=== PATIENT | female | born 1940 | race Caucasian/White ===

== ENCOUNTER 2024-06-13 09:31 | Outpatient (AMB) | payer MEDICARE, BC, MEDICAID, SELFPAY ==
[2024-06-13 09:51] VITALS: BP 125/84; PULSE 69; RESP 19; TEMP 36.4; O2SAT 97; BMI 20.3
--- NOTE | 2024-06-13 09:51 | PD.ORTHCLVIS ---
Vital signs 06/13/24 09:51 Height 1.65 m Height Method Stated Weight 55.395 kg Weight Measurement Method Standing Scale BMI 20.3 BP 125/84 Blood Pressure Source Automatic Cuff Blood Pressure Location Right Upper Arm Position Sitting Respiration 19 Pulse 69 Pulse Source Monitor Temp 97.5 F Temp Source Temporal Artery Scan Pulse Oximetry (%) 97 Oxygen Delivery Method Room Air Med/Allergies Allergies & Medications Allergies No Known Allergies Allergy (Verified 06/13/24 10:00) Medication Reconciliation atorvastatin 10 mg tablet (Lipitor) 10 mg PO HS #0 tabs 12/19/14 [History Confirmed 06/13/24] naproxen 375 mg tablet (Naprosyn) 375 mg PO BID PRN PAIN #0 tabs 12/19/14 [History Confirmed 06/13/24] duloxetine 60 mg capsule,delayed release (Cymbalta) 60 mg PO QDAY #30 caps 12/24/14 [History Confirmed 06/13/24] amlodipine 10 mg tablet 10 mg PO QDAY 11/07/17 [History Confirmed 06/13/24] benazepril 20 mg tablet 20 mg PO QDAY 11/07/17 [History Confirmed 06/13/24] meclizine 25 mg tablet 12.5 mg (1/2 x 25 mg) PO Q6HR #20 tabs 11/08/17 [Rx Confirmed 06/13/24] acetaminophen 300 mg-codeine 30 mg tablet 1 tab PO BID PRN pain #20 tabs 11/26/20 [Rx Confirmed 06/13/24] alprazolam 0.25 mg tablet (Xanax) 0.25 mg PO QDAY 06/13/24 [History Confirmed 06/13/24] celecoxib 200 mg capsule 200 mg PO QDAY 06/13/24 [History Confirmed 06/13/24] losartan 100 mg-hydrochlorothiazide 12.5 mg tablet 1 tab PO QDAY 06/13/24 [History Confirmed 06/13/24] losartan 100 mg-hydrochlorothiazide 12.5 mg tablet 1 tab PO QDAY 06/13/24 [History Confirmed 06/13/24] sertraline 50 mg tablet 50 mg PO QDAY 06/13/24 [History Confirmed 06/13/24] Subjective Visit Visit for: new patient and knee (BILATERAL) Immunization / Flu Flu Vaccine in the Last 12 Months: Yes Flu Vaccine Exclusion Criteria: Already Received History of Present Illness Chief complaint: BILATERAL KNEE PAIN Clemencia is a pleasant 84-year-old female who presents today for evaluation of her bilateral knees. She reports significant instability of her knees. She feels like she cannot trust it and the knees give out. She does have peripheral neuropathy in her legs. I discussed with her that this is the pain worse to the instability that is bothering her and she reports that it is both. Personal History Red flag PMH: smoker Pain Pain level (0-10): 8 Pain duration: CONSTANT Pain location: inside (medial) Pain quality: sharp and aching Pain timing: increases with activity and stairs Associated signs & symptoms: none Ambulatory data Ambulatory device: walker Treatments Improvement with previous injections: No Improvement with PT: No Improvement with NSAIDS: no Review of Systems Review of Systems: All systems negative unless otherwise noted in HPI. Exam Exam Patient is in no acute distress and is cooperative with the examination today. Patient has a normal mood and affect. Breathing is nonlabored. In no respiratory distress. Bilateral extremities were evaluated and demonstrates sensation intact to light touch. Palpable pedal pulses are present. No significant edema is present. The left knee was examined today. There is greater than 5 mm of play in the medial lateral direction. He is also greater than 5 mm of AP instability. For the right knee there is also greater than 5 mm of instability in the medial lateral plane and less so in the AP plane. X-rays demonstrate a cemented total knee replacement that appears to be of the same of her right knee. I do not see any evidence of loosening or radiolucent lines Assessment and Plan Problem List (1) Knee instability: Status: Acute Plan: Patient is a 84-year-old female with bilateral knee pain and significant instability globally of both knees. The left knee bothers her quite a bit. She lives alone with a zinc skimmer. I would upsize her poly to try to her give her more stability if I would give her surgical option. I discussed with her at her age it is a personal decision. If she is seeking more I would recommend a knee revision. This is likely a Nakia component and I would go to a medial stabilized knee replacement. Plan We discussed the risk and benefits of surgery including infection, loosening, dislocation, fracture. I also discussed the risks of medical issues of getting surgery at her age Advanced Care Planning Discussion Advance care planning discussed with:: patient Office Procedures GNS Level of Care Nursing/Assessment Patient Status: Initial/New Patient Nursing Assessment/Reassesment: Medication Reconciliation, Update PMH in EMR and Vital Signs Coordination of Care: Complex Care and Chronic Disease 1-5, Education Complex Pt/Fam, Consent,records obtained, informed consent and Staff clarify orders New Patient Charge New Patient Point Assignment: 1089 New Patient Point Charge: CONSULTING SENIOR PRACTICE DIRECTOR Level 3 (4167-8522) Past Medical History Past Medical History Have you ever been diagnosed with any of the following: Cardiology Problems Hypercholesterolemia: Yes Congestive Heart Failure: No Hypertension: Yes Respiratory Problems Chronic Obstructive Pulmonary Disease (COPD): No Asthma: No Smoking: Yes (30 YEARS) Smoking Exposure: Yes Genital/Urinary Problems Renal Disease: No Musculoskeletal Problems Arthritis: Yes Endocrine Problems Diabetes Mellitus Type 1: No Diabetes Mellitus Type 2: No Blood Problems Sickle Cell Disease: No Psychologic Problems Depression: Yes Anxiety: Yes Other Problems Blood Transfusions: No Surgical History Total Knee Replacement: Yes (LEFT (2012) RIGHT (2012))
== END 2024-06-13 10:21 | disposition home or self-care (01) ==
LOC: HODSRG 09:31
PROVIDERS: PCP Internal Medicine; Referring Provider Internal Medicine; Supervising Provider Orthopaedic Surgery Adult Reconstructive Orthopaedic Surgery; Visit Provider Orthopaedic Surgery Adult Reconstructive Orthopaedic Surgery
DX: M25.362 Other instability, left knee (principal); M25.361 Other instability, right knee; M25.562 Pain in left knee; M25.561 Pain in right knee; I10 Essential (primary) hypertension; E78.00 Pure hypercholesterolemia, unspecified
CPT/HCPCS: 99203; G0463

== ENCOUNTER 2024-07-08 14:29 | Outpatient (AMB) | payer MEDICARE, BC, MEDICAID, SELFPAY ==
[2024-07-08 14:57] VITALS: BP 126/70; PULSE 77; RESP 18; TEMP 36.1; O2SAT 96; BMI 20.8
--- NOTE | 2024-07-08 14:57 | PD.ORTHCLVIS ---
Vital signs 07/08/24 14:57 Height 1.65 m Height Method Stated Weight 56.784 kg Weight Measurement Method Standing Scale BMI 20.8 BP 126/70 Blood Pressure Source Automatic Cuff Blood Pressure Location Right Upper Arm Position Sitting Respiration 18 Pulse 77 Pulse Source Monitor Temp 97.0 F Temp Source Temporal Artery Scan Pulse Oximetry (%) 96 Oxygen Delivery Method Room Air Med/Allergies Allergies & Medications Allergies No Known Allergies Allergy (Verified 07/08/24 14:57) Medication Reconciliation duloxetine 60 mg capsule,delayed release (Cymbalta) 60 mg PO QDAY #30 caps 12/24/14 [History Confirmed 07/08/24] celecoxib 200 mg capsule 200 mg PO QDAY 06/13/24 [History Confirmed 07/08/24] losartan 100 mg-hydrochlorothiazide 12.5 mg tablet 1 tab PO QDAY 06/13/24 [History Confirmed 07/08/24] sertraline 50 mg tablet 50 mg PO QDAY 06/13/24 [History Confirmed 07/08/24] acetaminophen 500 mg tablet (Tylenol Extra Strength) 500 mg PO Q6H PRN 07/08/24 [History Confirmed 07/08/24] amlodipine 2.5 mg tablet 2.5 mg PO QDAY 07/08/24 [History Confirmed 07/08/24] cholecalciferol (vitamin D3) 10 mcg (400 unit) capsule 10 mcg PO QDAY 07/08/24 [History Confirmed 07/08/24] ibuprofen 200 mg capsule (Advil Liqui-Gel) 200 mg PO Q6H PRN 07/08/24 [History Confirmed 07/08/24] Subjective Visit Visit for: follow up visit Immunization / Flu Flu Vaccine in the Last 12 Months: No Flu Vaccine Exclusion Criteria: No Exclusion Criteria History of Present Illness Chief complaint: F/U KNEE PAIN Clemencia is a pleasant 84-year-old female who presents today for evaluation of her bilateral knees. She reports significant instability of her knees. She feels like she cannot trust it and the knees give out. She does have peripheral neuropathy in her legs. I discussed with her that this is the pain worse to the instability that is bothering her and she reports that it is both. Personal History Occupation: RETIRED Red flag PMH: smoker Pain Pain level (0-10): 6 Pain duration: ALL DAY Pain location: inside (medial), outside (lateral), anterior and posterior Pain quality: sharp, dull and aching Pain timing: night, increases with activity and stairs Associated signs & symptoms: numbness, weakness and stiffness Ambulatory data Ambulatory device: walker Treatments Improvement with previous injections: No Improvement with PT: No Improvement with NSAIDS: n/a Review of Systems Review of Systems: All systems negative unless otherwise noted in HPI. Exam Exam Patient is in no acute distress and is cooperative with the examination today. Patient has a normal mood and affect. Breathing is nonlabored. In no respiratory distress. Bilateral extremities were evaluated and demonstrates sensation intact to light touch. Palpable pedal pulses are present. No significant edema is present. The left knee was examined today. There is greater than 5 mm of play in the medial lateral direction. He is also greater than 5 mm of AP instability. For the right knee there is also greater than 5 mm of instability in the medial lateral plane and less so in the AP plane. X-rays demonstrate a cemented total knee replacement that appears to be of the same of her right knee. I do not see any evidence of loosening or radiolucent lines Assessment and Plan Problem List (1) Knee instability: Status: Acute Plan: Patient is a 84-year-old female with bilateral knee pain and significant instability globally of both knees. The left knee bothers her quite a bit. She lives alone with a travel registered nurse icu. I would upsize her poly to try to her give her more stability if I would give her surgical option. I discussed with her at her age it is a personal decision. I discussed upsizing the polyethylene. I am not sure how consentable she is as she is very hard of hearing. She was able to state to me that she would want a revision knee replacement and explained the risk and benefits in great detail including infection, bleeding, fracture, and recurrent instability. She discussed the likelihood of revision knee replacement. I would like for her to get a medical clearance given her age. It was honestly very difficult communicating with her given her hearing. Plan We discussed the risk and benefits of surgery including infection, loosening, dislocation, fracture. I also discussed the risks of medical issues of getting surgery at her age. We will need to get medical clearance prior to proceeding with surgery Advanced Care Planning Discussion Advance care planning discussed with:: patient Office Procedures GNS Level of Care Nursing/Assessment Patient Status: Established Patient Nursing Assessment/Reassesment: Medication Reconciliation, Update PMH in EMR and Vital Signs Coordination of Care: Complex Care and Chronic Disease 1-5, Education Complex Pt/Fam, Consent,records obtained, informed consent, Results/Orders obtained and Staff clarify orders Established Patient Charge Established Patient Point Assignment: 95 Established Patient Point Charge: EP Level 3 (80-115) Past Medical History Past Medical History Have you ever been diagnosed with any of the following: Cardiology Problems Hypercholesterolemia: Yes Congestive Heart Failure: No Hypertension: Yes Respiratory Problems Chronic Obstructive Pulmonary Disease (COPD): No Asthma: No Smoking: Yes (30 YEARS) Smoking Exposure: Yes Genital/Urinary Problems Renal Disease: No Musculoskeletal Problems Arthritis: Yes Endocrine Problems Diabetes Mellitus Type 1: No Diabetes Mellitus Type 2: No Blood Problems Sickle Cell Disease: No Psychologic Problems Depression: Yes Anxiety: Yes Other Problems Blood Transfusions: No Surgical History Total Knee Replacement: Yes (LEFT (2012) RIGHT (2012))
== END 2024-07-08 15:22 | disposition home or self-care (01) ==
LOC: HODSRG 14:29
PROVIDERS: PCP Internal Medicine; Referring Provider Internal Medicine; Supervising Provider Orthopaedic Surgery Adult Reconstructive Orthopaedic Surgery; Visit Provider Orthopaedic Surgery Adult Reconstructive Orthopaedic Surgery
DX: M25.362 Other instability, left knee (principal); M25.361 Other instability, right knee; I10 Essential (primary) hypertension; E78.00 Pure hypercholesterolemia, unspecified; Z96.653 Presence of artificial knee joint, bilateral
CPT/HCPCS: 99213; G0463

== ENCOUNTER → 2024-08-21 | Outpatient (CLI) | payer MEDICARE, BC, MEDICAID, SELFPAY ==
[2024-08-21 12:16] LABS: Basophils # (Auto) 0.1 Thou/mm3 (0.0-0.2); Basophils % (Auto) 1 % (0-2.5); Eosinophils # (Auto) 0.2 Thou/mm3 (0.0-0.5); Eosinophils % (Auto) 2 % (0-10); Hematocrit 38.5 % (36.0-46.0); Hemoglobin 13.1 g/dL (12.0-16.0); Immature Granulocytes % (Auto) 0 % (0-0); Immature Granulocytes Auto 0.02 Thou/mm3 (0.00-0.00); Lymphocytes # (Auto) 1.7 Thou/mm3 (1.0-4.8); Lymphocytes % (Auto) 25 % (10-50); Mean Corpuscular Hemoglobin 31.2 pg (25.0-35.0); Mean Corpuscular Volume 92 fL (80-100); Monocytes # (Auto) 0.5 Thou/mm3 (0.0-0.8); Monocytes % (Auto) 7 % (0-12); Neutrophils # (Auto) 4.6 Thou/mm3 (1.8-7.7); Neutrophils % (Auto) 65 % (37-80); Nucleated Red Blood Cell % 0 /100 WBC (0); Platelet Count 429 Thou/mm3 (140-440); RDW Standard Deviation 42.5 fL (36.4-46.3); White Blood Count 7.1 Thou/mm3 (3.6-11.0)
[2024-08-21 12:41] LABS: Alanine Aminotransferase 12 U/L (10-49); Albumin, Serum 5.1 gm/dL (3.4-4.8); Albumin/Globulin Ratio 2.1 (1.2-2.2); Alkaline Phosphatase 91 U/L (46-116); Anion Gap 6 (7-16); Aspartate Amino Transferase 12 U/L (0-34); BUN/Creatinine Ratio 19 Ratio (12-20); Bilirubin,Total 0.4 mg/dL (0.3-1.2); Blood Urea Nitrogen 19 mg/dL (9-23); Calcium 10.1 mg/dL (8.3-10.6); Calcium (Corrected) 10.1 mg/dL (8.5-10.1); Chloride 107 mMol/L (98-107); Globulin 2.4 gm/dL (2.3-3.5); Glucose 93 mg/dL (74-106); Osmolality,Calculated 281 (275-295); Potassium 3.7 mMol/L (3.4-5.1); Sodium 140 mMol/L (136-145); Total Protein 7.5 gm/dL (5.7-8.2); eGFR 56 See Note
[2024-08-21 12:57] LABS: INR 0.9 (0.9-1.3); Partial Thromboplastin Time 29.9 Seconds (22.0-36.0); Prothrombin Time 10.4 Seconds (9.0-12.2)
== END | disposition home or self-care (01) ==
LOC: COPL 11:49
PROVIDERS: PCP Internal Medicine; Referring Provider Internal Medicine; Visit Provider Internal Medicine
DX: I25.10 Atherosclerotic heart disease of native coronary artery without angina pectoris (principal); I48.91 Unspecified atrial fibrillation
CPT/HCPCS: 36415; 80053; 85025; 85610; 85730

== ENCOUNTER 2024-09-16 10:49 | Emergency (ER) | payer MEDICARE, BC, MEDICAID, SELFPAY ==
[2024-09-16 11:36] VITALS: BP 114/69; PULSE 71; RESP 16; TEMP 36.7; O2SAT 99; BMI 20.4
--- NOTE | 2024-09-16 11:41 | PD.EDRME ---
Rapid Medical Screening Exam RME Arrival date/time: 09/16/24 10:49 84-year-old female presents emergency department complaint of rectal bleeding Chief Complaint: GI Bleed Vital signs: Vital Signs Temperature 98.1 F 09/16/24 11:36 Pulse Rate 71 09/16/24 11:36 Respiratory Rate 16 09/16/24 11:36 Blood Pressure 114/69 09/16/24 11:36 Pulse Oximetry (%) 99 09/16/24 11:36 Oxygen Delivery Method Room Air 09/16/24 11:36
[2024-09-16 12:09] LABS: Basophils # (Auto) 0.1 Thou/mm3 (0.0-0.2); Basophils % (Auto) 1 % (0-2.5); Eosinophils # (Auto) 0.1 Thou/mm3 (0.0-0.5); Eosinophils % (Auto) 1 % (0-10); Hematocrit 35.7 % (36.0-46.0); Hemoglobin 12.2 g/dL (12.0-16.0); Immature Granulocytes % (Auto) 0 % (0-0); Immature Granulocytes Auto 0.02 Thou/mm3 (0.00-0.00); Lymphocytes # (Auto) 1.6 Thou/mm3 (1.0-4.8); Lymphocytes % (Auto) 20 % (10-50); Mean Corpuscular HGB Conc 34.2 g/dl (31.0-37.0); Mean Corpuscular Hemoglobin 31.3 pg (25.0-35.0); Mean Corpuscular Volume 92 fL (80-100); Monocytes # (Auto) 0.5 Thou/mm3 (0.0-0.8); Monocytes % (Auto) 7 % (0-12); Neutrophils # (Auto) 5.6 Thou/mm3 (1.8-7.7); Neutrophils % (Auto) 71 % (37-80); Nucleated Red Blood Cell % 0 /100 WBC (0); Platelet Count 350 Thou/mm3 (140-440); RDW Standard Deviation 42.9 fL (36.4-46.3); White Blood Count 7.8 Thou/mm3 (3.6-11.0)
[2024-09-16 12:16] VITALS: BP 135/72; PULSE 56; RESP 18; TEMP 36.6; O2SAT 100
--- NOTE | 2024-09-16 12:24 | PD.EDADULT ---
ED General RME/HPI General Chief complaint: GI Bleed Stated complaint: sent by PMD for rectal bleeding Time Seen by Provider: 09/16/24 12:14 Arrival date/time: 09/16/24 10:49 CC: Rectal bleeding HPI ongoing for the past 2 weeks denies any lightheadedness dizziness states that she has blood dripping out , and has to wear a pad . Patient is awake alert oriented hard of hearing. No other complaints. RME / HPI RME / HPI narrative: 09/16/24 10:49 84-year-old female presents emergency department complaint of rectal bleeding Related Data Home Medications ?Medication ?Instructions ?Recorded ?Confirmed duloxetine 60 mg capsule,delayed 60 mg PO QDAY #30 caps 12/24/14 07/08/24 release (Cymbalta) celecoxib 200 mg capsule 200 mg PO QDAY 06/13/24 07/08/24 losartan 100 1 tab PO QDAY 06/13/24 07/08/24 mg-hydrochlorothiazide 12.5 mg tablet sertraline 50 mg tablet 50 mg PO QDAY 06/13/24 07/08/24 acetaminophen 500 mg tablet 500 mg PO Q6H PRN 07/08/24 07/08/24 (Tylenol Extra Strength) amlodipine 2.5 mg tablet 2.5 mg PO QDAY 07/08/24 07/08/24 cholecalciferol (vitamin D3) 10 10 mcg PO QDAY 07/08/24 07/08/24 mcg (400 unit) capsule ibuprofen 200 mg capsule (Advil 200 mg PO Q6H PRN 07/08/24 07/08/24 Liqui-Gel) Previous Rx's ?Medication ?Instructions ?Recorded hydrocortisone acetate 25 mg 25 mg GA QDAY #12 ea 09/16/24 rectal suppository (Anusol-HC) Allergies Allergy/AdvReac Type Severity Reaction Status Date / Time No Known Allergies Allergy Verified 07/08/24 14:57 Review of Systems Review of Systems Narrative Review of Systems: GEN: No fever, no chills, no weight loss EYES: No discharge, no visual changes, no pain HEENT: No ear pain, no congestion, no sore throat PULM: No shortness of breath, no cough, no congestion CV: No chest pain, no dyspnea on exertion, no palpitations GI: No nausea, no vomiting, no diarrhea, no pain, no constipation : No frequency, no urgency, no dysuria MUSC/SKEL: No joint pain, no back pain SKIN: No rash PSYCH: No hallucinations, no depression HEME/LYMPH: No easy bleeding or bruising tendencies NEURO: No weakness, no headache Past Medical History Past Medical History CARDIAC: Positive Cardiac Disorders, Hypercholesterolemia and Hypertension; Negative Congestive Heart Failure RESPIRATORY: Positive Smoking (30 YEARS) and Smoking Exposure; Negative Chronic Obstructive Pulmonary Disease (COPD) or Asthma GENITOURINARY: Negative Renal Disease MUSCULOSKELETAL: Positive Musculoskeletal Disorders and Arthritis ENDOCRINE: Negative Diabetes Mellitus Type 1 or Diabetes Mellitus Type 2 HEMATOLOGIC: Negative Sickle Cell Disease PSYCHO/SOCIAL: Positive Depression and Anxiety OTHER HISTORY: Negative Blood Transfusions Surgical History SURGICAL: Positive Eye Surgery and Open Reduction Internal Fixation Social History SMOKING STATUS: Current some day smoker ED Exam Narrative Physical exam: [General: Frail, hard of hearing but not deconditioned not in any acute distress Head normocephalic HEENT: Within acceptable limits Neck is supple nontender Chest equal chest rise nontender to palpation Respiratory: Clear to auscultation no wheezes crackles or rubs CV: Rate rhythm is regular no murmurs rubs or clicks Abdomen is soft nontender no masses positive bowel sounds all 4 quadrants GI: Rectum: Moderate rectal tone several old hemorrhoids 1 new hemorrhoid at the 9 o'clock position opened with a clot. Approximately 1 cm in diameter. Rectal vault empty fecal matter from the wall guaiac negative. Back: No CVA tenderness no spinous process tenderness from cervical spine thoracic and lumbar spine Skin: Intact no petechiae rash induration ulceration or crepitus Extremities: Moving all extremity against resistance cap refill less than 2 seconds neurosensory intact Neuro: Awake alert oriented x3 Glascow coma 15 no focal deficits] Course Quality Measures none Orders Category Date Time Status CT Screening NOW Care 09/16/24 11:41 Active Insert IV NOW Care 09/16/24 12:[address] abdomen pelvis wo con Stat Exams 09/16/24 13:05 Completed CBC Stat Lab 09/16/24 12:02 Completed Comprehensive Metabolic Panel Stat Lab 09/16/24 12:02 Completed Lipase Stat Lab 09/16/24 12:02 Completed PT [Prothrombin Time with INR] Stat Lab 09/16/24 12:02 Completed PTT [Partial Thromboplastin Time] Stat Lab 09/16/24 12:02 Completed Type and Screen Stat Lab 09/16/24 12:43 Completed UA, C/S IF [Urinalysis, C/S if Indicated] Stat Lab 09/16/24 11:41 Ordered Vital Signs Vital signs: Vital Signs Temperature 98.1 F 09/16/24 11:36 Pulse Rate 71 09/16/24 11:36 Respiratory Rate 16 09/16/24 11:36 Blood Pressure 114/69 09/16/24 11:36 Pulse Oximetry (%) 99 09/16/24 11:36 Oxygen Delivery Method Room Air 09/16/24 11:36 [facility] Patient data External records reviewed:: [facility] previous records Clinical information provided by:: patient and friend Social determinants that could affect healthcare access:: none Patient has the following chronic illnesses:: Hypertension depression How is presenting disease/condition affected by chronic disease/condition?: uneffected by Evaluation data The following diagnostics were reviewed and interpreted by me:: lab results and radiology exam(s) Lab and/or radiology exams considered but not ordered:: CBC shows no acute leukocytosis anemia thrombocytopenia CMP shows no acute electrolyte imbalances renal impairment transaminitis or T. bili elevation CT of the abdomen shows patient has proctitis, with no other acute finding. Interpretation Summary: Given the patient has had rectal bleeding with guaiac negative stool, the patient's case was discussed with Dr. Miguel patient will be put on Anusol suppositories to follow-up with Dr. Miguel on an outpatient basis. Patient is comfortable with this plan. Medications Medications considered but not ordered:: None Medication administrations:: None Consultations Consultation(s) initiated? (list below): Yes Consultation #1 (Physician, Specialty, Details): Lamont Time: 14:29 Diagnosis Differential Diagnosis ED Complaint MDM: Rectal bleeding upper GI lower GI bleeding Most likely diagnosis given after review of the tests above:: Rectal bleeding Admission Indicated Admission indicated?: not indicated Explain why admission is indicated or not indicated:: Stable for outpatient follow-up Admission Request Was there a request for admission?: No Disposition Plan Disposition Plan: Discharge Discharge Attestation Discharge Attestation: The patient and all family members were given an opportunity to ask questions and understood the discharge instructions. Discharge instructions specifically effects, indications for sooner follow up or return to the emergency department, and the expected course of current diagnosis. Patient condition: Stable Medical Decision Making Differential Diagnosis Differential Diagnosis: Rectal bleeding upper GI lower GI bleeding Lab Data 09/16/24 12:02 09/16/24 12:02 Labs: Lab Results 09/16/24 09/16/24 Range/Units 12:02 12:43 WBC 7.8 (3.6-11.0) Thou/mm3 RBC 3.90 L (4.00-5.20) Miln/mm3 Hgb 12.2 (12.0-16.0) g/dL Hct 35.7 L (36.0-46.0) % MCV 92 (80-100) fL MCH 31.3 (25.0-35.0) pg MCHC 34.2 (31.0-37.0) g/dl RDW Std Deviation 42.9 (36.4-46.3) fL Plt Count 350 D (140-440) Thou/mm3 Neut % (Auto) 71 (37-80) % Lymph % (Auto) 20 (10-50) % [place] % (Auto) 7 (0-12) % Eos % (Auto) 1 (0-10) % Baso % (Auto) 1 (0-2.5) % Neut # (Auto) 5.6 (1.8-7.7) Thou/mm3 Lymph # (Auto) 1.6 (1.0-4.8) Thou/mm3 [place] # (Auto) 0.5 (0.0-0.8) Thou/mm3 Eos # (Auto) 0.1 (0.0-0.5) Thou/mm3 Baso # (Auto) 0.1 (0.0-0.2) Thou/mm3 Immature Gran # (Auto) 0.02 H (0.00-0.00) Thou/mm3 Absolute Nucleated RBC 0.00 (0.00-0.00) Thou/mm3 Immature Gran % 0 (0-0) % Nucleated RBC % 0 (0) /100 WBC PT 10.3 (9.0-12.2) Seconds INR 0.9 (0.9-1.3) APTT 28.9 (22.0-36.0) Seconds Sodium 138 (136-145) mMol/L Potassium 4.0 (3.4-5.1) mMol/L Chloride 104 (98-107) mMol/L Carbon Dioxide 27.4 (20.0-31.0) mMol/L Anion Gap 7 (7-16) BUN 27 H (9-23) mg/dL Creatinine 1.3 (0.6-1.3) mg/dL Estim Creat Clear Calc 27.4 L (>60) mL/min eGFR 41 L (60 - ) See Note BUN/Creatinine Ratio 21 H (12-20) Ratio Glucose 101 (74-106) mg/dL Calculated Osmolality 280 (275-295) Calcium 9.9 (8.3-10.6) mg/dL Corrected Calcium 9.9 (8.5-10.1) mg/dL Total Bilirubin 0.5 (0.3-1.2) mg/dL AST 20 (0-34) U/L ALT 13 (10-49) U/L Alkaline Phosphatase 93 (46-116) U/L Total Protein 7.2 (5.7-8.2) gm/dL Albumin 4.9 H (3.4-4.8) gm/dL Globulin 2.3 (2.3-3.5) gm/dL Albumin/Globulin Ratio 2.1 (1.2-2.2) Lipase 26 (12-53) U/L Blood Type O Positive Antibody Screen NEGATIVE Blood Bank Wristband ID Yes Discharge Plan Plan Patient Disposition: HOME (Self Care) Patient condition on transfer: Stable Prescriptions/Referrals Prescriptions/Med Rec: New hydrocortisone acetate [Anusol-HC] 25 mg suppository 25 mg GA QDAY Qty: 12 0RF No Action celecoxib 200 mg capsule 200 mg PO QDAY losartan-hydrochlorothiazide 100-12.5 mg tablet 1 tab PO QDAY sertraline 50 mg tablet 50 mg PO QDAY acetaminophen [Tylenol Extra Strength] 500 mg tablet 500 mg PO Q6H PRN cholecalciferol (vitamin D3) 10 mcg (400 unit) capsule 10 mcg PO QDAY ibuprofen [Advil Liqui-Gel] 200 mg capsule 200 mg PO Q6H PRN amlodipine 2.5 mg tablet 2.5 mg PO QDAY duloxetine [Cymbalta] 60 MG capsule,delayed release(DR/EC) 60 mg PO QDAY Qty: 30 Referrals: Bladimir Colon MD [Primary Care Provider] - In 1 week Daphne Miguel MD [Physician] - In 1 week Problem List Clinical Impression: Rectal bleed Patient/Caregiver Discharge Instructions Other Activity Instructions:: Take the suppositories as prescribed if there is worsening of symptoms return to the emergency room otherwise follow-up with Dr. Miguel listed above. Education Materials: Understanding Rectal Bleeding Print Language: Citizen Of [place] Stand Alone Forms: Jeanette Award Info., Patient Portal Info Letter, Work/School Release PA/AUTOMOTIVE PARTS COUNTER PERSON Supervising Physician PA/AUTOMOTIVE PARTS COUNTER PERSON Supervising Physician: Jeffery Gilliland ENP
[2024-09-16 12:25] LABS: INR 0.9 (0.9-1.3); Partial Thromboplastin Time 28.9 Seconds (22.0-36.0); Prothrombin Time 10.3 Seconds (9.0-12.2)
[2024-09-16 12:31] LABS: Alanine Aminotransferase 13 U/L (10-49); Albumin, Serum 4.9 gm/dL (3.4-4.8); Albumin/Globulin Ratio 2.1 (1.2-2.2); Alkaline Phosphatase 93 U/L (46-116); Anion Gap 7 (7-16); Aspartate Amino Transferase 20 U/L (0-34); BUN/Creatinine Ratio 21 Ratio (12-20); Bilirubin,Total 0.5 mg/dL (0.3-1.2); Blood Urea Nitrogen 27 mg/dL (9-23); Calcium 9.9 mg/dL (8.3-10.6); Calcium (Corrected) 9.9 mg/dL (8.5-10.1); Carbon Dioxide 27.4 mMol/L (20.0-31.0); Chloride 104 mMol/L (98-107); Creatinine (Component) 1.3 mg/dL (0.6-1.3); Estimated Creatinine Clearance 27.4 mL/min (>60); Globulin 2.3 gm/dL (2.3-3.5); Glucose 101 mg/dL (74-106); Lipase 26 U/L (12-53); Osmolality,Calculated 280 (275-295); Sodium 138 mMol/L (136-145); Total Protein 7.2 gm/dL (5.7-8.2); eGFR 41 See Note
--- NOTE | 2024-09-16 13:05 | XR_ITS ---
Examination: CT abdomen and pelvis without contrast. Coronal 3-D reconstructions. Sagittal 2-D reconstructions. Date and time of exam:September 16, 2024 at 1307 hours Comparison January 10, 2023 INDICATIONS: Onset rectal bleeding today CTDI: vol (mGy): 5.78 DLP: (mGycm): 319 Technique: Axial images of the abdomen have been obtained, 3 mm slice thickness Intravenous contrast material has not been administered. Low dose protocols were performed. One or more of the following dose reduction techniques were used; automated exposure control, adjustment of the mA and/or KV according to patient size, use of iterative reconstruction technique. Findings: No focal liver or splenic lesion No gallstones Pancreatic calcifications 2 mm lower pole right renal calculus Hyperdense mass midportion left kidney, 14 mm Transverse dimension abdominal aorta at the level of the renal veins is 27 mm No bowel obstruction No diverticulitis, sigmoid diverticulosis is present Air distended rectum Diffuse wall thickening involving the rectum, axial image 221 Severe osteopenia with advanced degenerative disc disease at the lower 4 lumbar levels IMPRESSION: Recommend renal sonography to assess 14 mm hypodense mass midportion left kidney Colonic diverticulosis Diffuse wall thickening involving the rectum, differential would include proctitis, early rectal tumor not excluded, recommend direct inspection
[2024-09-16 15:07] VITALS: BP 135/58; PULSE 88; RESP 16; TEMP 36.6; O2SAT 99
== END 2024-09-16 15:08 | disposition home or self-care (01) ==
PROVIDERS: Nurse Practitioner Primary Care; Emergency Provider Emergency Medicine; PCP Internal Medicine
DX: K62.5 Hemorrhage of anus and rectum (principal); K64.9 Unspecified hemorrhoids
CPT/HCPCS: 36415; 74176; 80053; 81001; 83690; 85025; 85610; 85730; 86850; 86900; 86901; 99284

== ENCOUNTER 2024-11-07 13:06 | Outpatient (AMB) | payer MEDICARE, BC, MEDICAID, SELFPAY ==
[2024-11-07 13:14] VITALS: BP 109/69; PULSE 88; RESP 18; TEMP 36.2; O2SAT 97; BMI 19.7
--- NOTE | 2024-11-07 13:14 | ORTHONT_ITS ---
Vital signs 11/07/24 13:14 Height 1.63 m Height Method Measured Weight 52.305 kg Weight Measurement Method Standing Scale BMI 19.7 BP 109/69 Blood Pressure Source Automatic Cuff Blood Pressure Location Left Upper Arm Position Sitting Respiration 18 Pulse 88 Pulse Source Monitor Temp 97.2 F Temp Source Temporal Artery Scan Pulse Oximetry (%) 97 Oxygen Delivery Method Room Air Med/Allergies Allergies & Medications Allergies No Known Allergies Allergy (Verified 07/08/24 14:57) Exam Exam Patient is in no acute distress and is cooperative with the examination today. Patient has a normal mood and affect. Breathing is nonlabored. In no respiratory distress. Bilateral extremities were evaluated and demonstrates sensation intact to light touch. Palpable pedal pulses are present. No significant edema is present. The left knee was examined today. There is greater than 5 mm of play in the medial lateral direction. He is also greater than 5 mm of AP instability. For the right knee there is also greater than 5 mm of instability in the medial lateral plane and less so in the AP plane. X-rays demonstrate a cemented total knee replacement that appears to be of the same of her right knee. I do not see any evidence of loosening or radiolucent lines. Left knee also demonstrates a cemented Nakia total knee replacement Assessment and Plan Problem List (1) Knee instability: Status: Acute Plan: Patient is a 84-year-old female with bilateral knee pain and significant instability globally of both knees. The left knee bothers her quite a bit. She lives alone with a fuel system maintenance supervisor. I would upsize her poly to try to her give her more stability if I would give her surgical option. I discussed with her at her age it is a personal decision. I discussed upsizing the polyethylene. I am not sure how consentable she is as she is very hard of hearing. She was able to state to me that she would want a revision knee replacement and explained the risk and benefits in great detail including infection, bleeding, fracture, and recurrent instability. She discussed the likelihood of revision knee replacement. I would like for her to get a medical clearance given her age. It was honestly very difficult communicating with her given her hearing. Plan We discussed the risk and benefits of surgery including infection, loosening, dislocation, fracture. I also discussed the risks of medical issues of getting surgery at her age. We will need to get medical clearance prior to proceeding with surgery. I also discussed that I would like for her to bring her family member with or her fuel system maintenance supervisor. Advanced Care Planning Discussion Advance care planning discussed with:: patient Office Procedures GNS Level of Care Nursing/Assessment Patient Status: Established Patient Nursing Assessment/Reassesment: BP Monitoring, Medication Reconciliation and Vital Signs Coordination of Care: Complex Care and Chronic Disease 1-5 and Lab and Imaging orders Established Patient Charge Established Patient Point Assignment: 75 Established Patient Point Charge: EP Level 2 (40-75) OR Intake Visit Data Collection Reason for Visit:: FOLLOW UP KNEE PAIN Language: NO Questionairres Past Medical History Past Medical History Have you ever been diagnosed with any of the following: Cardiology Problems Hypercholesterolemia: Yes Congestive Heart Failure: No Hypertension: Yes Respiratory Problems Chronic Obstructive Pulmonary Disease (COPD): No Asthma: No Smoking: Yes (30 YEARS) Smoking Exposure: Yes Genital/Urinary Problems Renal Disease: No Musculoskeletal Problems Arthritis: Yes Endocrine Problems Diabetes Mellitus Type 1: No Diabetes Mellitus Type 2: No Blood Problems Sickle Cell Disease: No Psychologic Problems Depression: Yes Anxiety: Yes Other Problems Blood Transfusions: No Surgical History Total Knee Replacement: Yes (LEFT (2012) RIGHT (2012)) Subjective Immunization / Flu Flu Vaccine in the Last 12 Months: Yes Flu Vaccine Exclusion Criteria: Already Received History of Present Illness Chief complaint: LEFT AND RIGHT KNEE PAIN Clemencia is a pleasant 84-year-old female with chronic knee pain. She reports the left knee gives out and is unstable. On exam there is significant global instability in both the varus valgus as well as the AP plane. Given her age, we discussed Revision knee replacement again in great detail. I would upsize her liner and give her medial stabilized poly As she has looseness in both flexion and extension Personal History Occupation: RETIRED Red flag PMH: smoker Pain Pain level (0-10): 8 Pain duration: CONSTANT Pain location: inside (medial), outside (lateral), anterior and posterior Pain quality: sharp and dull Associated signs & symptoms: weakness and stiffness Ambulatory data Ambulatory device: walker Review of Systems Review of Systems: All systems negative unless otherwise noted in HPI.
== END 2024-11-07 13:29 | disposition home or self-care (01) ==
LOC: HODSRG 13:06
PROVIDERS: PCP Internal Medicine; Referring Provider Internal Medicine; Supervising Provider Orthopaedic Surgery Adult Reconstructive Orthopaedic Surgery; Visit Provider Orthopaedic Surgery Adult Reconstructive Orthopaedic Surgery
DX: M25.362 Other instability, left knee (principal); M25.361 Other instability, right knee; E78.00 Pure hypercholesterolemia, unspecified; I10 Essential (primary) hypertension; Z96.653 Presence of artificial knee joint, bilateral
CPT/HCPCS: 99212; G0463

== ENCOUNTER 2024-12-02 13:47 | Outpatient (AMB) | payer MEDICARE, BC, MEDICAID, SELFPAY ==
[2024-12-02 13:58] VITALS: BP 145/76; PULSE 80; RESP 17; TEMP 36.3; O2SAT 94
--- NOTE | 2024-12-02 13:58 | ORTHONT_ITS ---
Vital signs 12/02/24 13:58 Height 1.63 m Height Method Stated Weight 53.297 kg Weight Measurement Method Standing Scale BMI 20.0 BP 145/76 H Blood Pressure Source Automatic Cuff Blood Pressure Location Right Upper Arm Position Sitting Respiration 17 Pulse 80 Pulse Source Monitor Temp 97.4 F Temp Source Temporal Artery Scan Pulse Oximetry (%) 94 L Oxygen Delivery Method Room Air Med/Allergies Allergies & Medications Allergies No Known Allergies Allergy (Verified 12/02/24 13:59) Medication Reconciliation duloxetine 60 mg capsule,delayed release (Cymbalta) 60 mg PO QDAY #30 caps 03/03 [History Confirmed 12/02/24] celecoxib 200 mg capsule 200 mg PO QDAY 06/13/24 [History Confirmed 12/02/24] losartan 100 mg-hydrochlorothiazide 12.5 mg tablet 1 tab PO QDAY 06/13/24 [History Confirmed 12/02/24] sertraline 50 mg tablet 50 mg PO QDAY 06/13/24 [History Confirmed 12/02/24] acetaminophen 500 mg tablet (Tylenol Extra Strength) 500 mg PO Q6H PRN 07/08/24 [History Confirmed 12/02/24] amlodipine 2.5 mg tablet 2.5 mg PO QDAY 07/08/24 [History Confirmed 12/02/24] cholecalciferol (vitamin D3) 10 mcg (400 unit) capsule 10 mcg PO QDAY 07/08/24 [History Confirmed 12/02/24] ibuprofen 200 mg capsule (Advil Liqui-Gel) 200 mg PO Q6H PRN 07/08/24 [History Confirmed 12/02/24] hydrocortisone acetate 25 mg rectal suppository (Anusol-HC) 25 mg [place] QDAY #12 ea 09/16/24 [Rx Confirmed 12/02/24] Exam Exam Patient is in no acute distress and is cooperative with the examination today. Patient has a normal mood and affect. Breathing is nonlabored. In no respiratory distress. Bilateral extremities were evaluated and demonstrates sensation intact to light touch. Palpable pedal pulses are present. No significant edema is present. The left knee was examined today. There is greater than 5 mm of play in the medial lateral direction. He is also greater than 5 mm of AP instability. For the right knee there is also greater than 5 mm of instability in the medial lateral plane and less so in the AP plane. X-rays demonstrate a cemented total knee replacement that appears to be of the same of her right knee. I do not see any evidence of loosening or radiolucent lines. Left knee also demonstrates a cemented Nakia total knee replacement Assessment and Plan Problem List (1) Knee instability: Status: Acute Plan: Patient is a 84-year-old female with bilateral knee pain and significant instability globally of both knees. The left knee bothers her quite a bit. She lives alone with a freelance recruiter. I would upsize her poly to try to her give her more stability if I would give her surgical option. I discussed with her at her age it is a personal decision. I discussed upsizing the polyethylene. I am not sure how consentable she is as she is very hard of hearing. She was able to state to me that she would want a revision knee replacement and explained the risk and benefits in great detail including infection, bleeding, fracture, and recurrent instability. She discussed the likelihood of revision knee replacement. I would like for her to get a medical clearance given her age. It was honestly very difficult communicating with her given her hearing. Plan We discussed the risk and benefits of surgery including infection, loosening, dislocation, fracture. I also discussed the risks of medical issues of getting surgery at her age. She did get medical clearance but I am not sure how well she will do after surgery. She has very little comprehension of what is going on and does not realize that she will need to go to physical therapy. She has almost no support at home and lives alone and is 84 with dementia. We do recommend that she have a very serious conversation and get her home set up with support before pursuing surgery Advanced Care Planning Discussion Advance care planning discussed with:: patient Office Procedures GNS Level of Care Nursing/Assessment Patient Status: Established Patient Nursing Assessment/Reassesment: Medication Reconciliation and Update PMH in EMR Coordination of Care: Complex Care and Chronic Disease 1-5, Consent,records obtained, informed consent, Education Simp Pt/Fam, Results/Orders obtained and Staff clarify orders Established Patient Charge Established Patient Point Assignment: 75 Established Patient Point Charge: EP Level 2 (40-75) MA Intake Visit Data Collection New Patient or Established: Established Patient (seen at [facility] within 3 years) Reason for Visit:: FU LT KNEE PAIN Seen by Clinical Staff ONLY (RN/MA): No Crm Functional Analyst Required: No PCP or OBGYN visit in last 3 months: Yes Hx Now: No Do You Feel Safe at Home: Yes Authorities Contacted: N/A Questionairres Past Medical History Past Medical History Have you ever been diagnosed with any of the following: Cardiology Problems Hypercholesterolemia: Yes Congestive Heart Failure: No Hypertension: Yes Respiratory Problems Chronic Obstructive Pulmonary Disease (COPD): No Asthma: No Smoking: Yes (30 YEARS) Smoking Exposure: Yes Genital/Urinary Problems Renal Disease: No Musculoskeletal Problems Arthritis: Yes Endocrine Problems Diabetes Mellitus Type 1: No Diabetes Mellitus Type 2: No Blood Problems Sickle Cell Disease: No Psychologic Problems Depression: Yes Anxiety: Yes Other Problems Blood Transfusions: No Surgical History Total Knee Replacement: Yes (LEFT (2012) RIGHT (2012)) Subjective Visit Visit for: follow up visit and knee (LT KNEE ) Immunization / Flu Flu Vaccine in the Last 12 Months: Yes Flu Vaccine Exclusion Criteria: Already Received History of Present Illness Chief complaint: LEFT AND RIGHT KNEE PAIN Clemencia is a pleasant 84-year-old female with chronic knee pain. She reports the left knee gives out and is unstable. On exam there is significant global instability in both the varus valgus as well as the AP plane. Given her age, we discussed Revision knee replacement again in great detail. I would upsize her liner and give her medial stabilized poly As she has looseness in both flexion and extension. I biggest concern with this patient if she has no help at home. She has a freelance recruiter that is only home for 2 hours and She reports that she would like to surgery. However she has almost no support at home at all Personal History Occupation: RETIRED Red flag PMH: smoker Pain Pain level (0-10): 8 Pain duration: +2 YEARS Pain location: anterior Pain quality: sharp, dull, aching, burning, shocking, electric and tingling Pain timing: night Associated signs & symptoms: numbness, weakness and stiffness Ambulatory data Ambulatory device: walker Walking distance (minutes): 1 Treatments Number of previous injections: 2 Improvement with previous injections: No Number of Physical Therapy sessions: 0 Improvement with NSAIDS: n/a Review of Systems Review of Systems: All systems negative unless otherwise noted in HPI.
== END 2024-12-02 14:24 | disposition home or self-care (01) ==
LOC: HODSRG 13:47
PROVIDERS: PCP Internal Medicine; Referring Provider Internal Medicine; Supervising Provider Orthopaedic Surgery Adult Reconstructive Orthopaedic Surgery; Visit Provider Orthopaedic Surgery Adult Reconstructive Orthopaedic Surgery
DX: M23.52 Chronic instability of knee, left knee (principal); M23.51 Chronic instability of knee, right knee; M25.562 Pain in left knee; M25.561 Pain in right knee; F03.90 Unspecified dementia, unspecified severity, without behavioral disturbance, psychotic disturbance, mood disturbance, and anxiety; I10 Essential (primary) hypertension; E78.00 Pure hypercholesterolemia, unspecified
CPT/HCPCS: 99212; G0463

== ENCOUNTER 2025-01-01 14:27 | Outpatient (AMB) | payer MEDICARE, BC, MEDICAID, SELFPAY ==
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
[2025-01-01 14:45] VITALS: BP 154/65; PULSE 72; RESP 18; TEMP 36; O2SAT 96; BMI 19.8
== END 2025-01-01 15:13 | disposition home or self-care (01) ==
LOC: HODSRG 14:27
PROVIDERS: PCP Internal Medicine; Referring Provider Internal Medicine; Supervising Provider Orthopaedic Surgery Adult Reconstructive Orthopaedic Surgery; Visit Provider Orthopaedic Surgery Adult Reconstructive Orthopaedic Surgery
DX: M23.52 Chronic instability of knee, left knee (principal); M23.51 Chronic instability of knee, right knee; I10 Essential (primary) hypertension; E78.00 Pure hypercholesterolemia, unspecified
CPT/HCPCS: 99213; G0463

== ENCOUNTER → 2025-01-02 | Outpatient (CLI) | payer MEDICARE, BC, MEDICAID, SELFPAY ==
[2025-01-02 13:33] LABS: Basophils # (Auto) 0.1 Thou/mm3 (0.0-0.2); Basophils % (Auto) 1 % (0-2.5); Eosinophils # (Auto) 0.1 Thou/mm3 (0.0-0.5); Eosinophils % (Auto) 2 % (0-10); Hematocrit 35.4 % (36.0-46.0); Hemoglobin 12.3 g/dL (12.0-16.0); Immature Granulocytes % (Auto) 0 % (0-0); Immature Granulocytes Auto 0.02 Thou/mm3 (0.00-0.00); Lymphocytes # (Auto) 1.6 Thou/mm3 (1.0-4.8); Lymphocytes % (Auto) 28 % (10-50); Mean Corpuscular HGB Conc 34.7 g/dl (31.0-37.0); Mean Corpuscular Hemoglobin 30.8 pg (25.0-35.0); Mean Corpuscular Volume 89 fL (80-100); Monocytes # (Auto) 0.3 Thou/mm3 (0.0-0.8); Monocytes % (Auto) 6 % (0-12); Neutrophils # (Auto) 3.5 Thou/mm3 (1.8-7.7); Neutrophils % (Auto) 63 % (37-80); Nucleated Red Blood Cell % 0 /100 WBC (0); Platelet Count 318 Thou/mm3 (140-440); RDW Standard Deviation 43.8 fL (36.4-46.3); White Blood Count 5.6 Thou/mm3 (3.6-11.0)
[2025-01-02 13:56] LABS: Alanine Aminotransferase 12 U/L (10-49); Albumin, Serum 4.3 gm/dL (3.4-4.8); Albumin/Globulin Ratio 1.8 (1.2-2.2); Alkaline Phosphatase 90 U/L (46-116); Anion Gap 6 (7-16); Aspartate Amino Transferase 21 U/L (0-34); BUN/Creatinine Ratio 19 Ratio (12-20); Bilirubin,Total 0.7 mg/dL (0.3-1.2); Blood Urea Nitrogen 19 mg/dL (9-23); Carbon Dioxide 30.4 mMol/L (20.0-31.0); Cardiac Risk Estimate 3.4 RATIO (3.7-5.6); Chloride 106 mMol/L (98-107); Cholesterol 206 mg/dL (132-200); Free T4 (Free Thyroxine) 0.88 ng/dL (0.89-1.76); Globulin 2.4 gm/dL (2.3-3.5); Glucose 95 mg/dL (74-106); Glucose Estimated Average 100 mg/dL (80-131); HDL Cholesterol 60 mg/dL (40-60); Hemoglobin A1C 5.1 % Hgb (4.8-6.0); LDL Cholesterol,Calculated 124 mg/dL (0-130); Osmolality,Calculated 285 (275-295); Potassium 3.8 mMol/L (3.4-5.1); Sodium 142 mMol/L (136-145); Total Protein 6.7 gm/dL (5.7-8.2); Triglycerides 110 mg/dL (30-150); Vitamin D 25 Hydroxy Total 89.8 ng/mL (7.3-40.2); eGFR 56 See Note
== END | disposition home or self-care (01) ==
PROVIDERS: PCP Internal Medicine; Referring Provider Internal Medicine; Visit Provider Internal Medicine
DX: I11.0 Hypertensive heart disease with heart failure (principal); E11.9 Type 2 diabetes mellitus without complications; E55.9 Vitamin D deficiency, unspecified; E03.9 Hypothyroidism, unspecified
CPT/HCPCS: 36415; 80053; 80061; 82306; 83036; 84439; 84443; 85025

== ENCOUNTER 2025-04-13 14:42 | Emergency (ER) | payer MEDICARE, BC, MEDICAID, SELFPAY ==
[2025-04-13 14:45] VITALS: BP 180/86; PULSE 68; RESP 18; TEMP 36.4; O2SAT 95
--- NOTE | 2025-04-13 15:02 | EKG_ITS ---
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
--- NOTE | 2025-04-13 15:02 | XR_ITS ---
Examination: AP chest single view FINDINGS: AP portable upright chest single view Date and time: April 13, 2025, 1524 hours INDICATIONS: Chest pain shortness of breath today. FINDINGS: Normal heart size. Mild elevation right hemidiaphragm. No pneumonia or pulmonary edema. Prominent osteopenia. IMPRESSION: No pneumonia or pulmonary edema.
--- NOTE | 2025-04-13 15:03 | PD.EDSYNC ---
ED Syncope RME/HPI General Chief Complaint: Weakness Stated Complaint: WEAKNESS Time Seen by Provider: 04/13/25 15:02 Source: patient Arrival date/time: 04/13/25 14:42 Limitations: no limitations RME / HPI RME / HPI narrative: 84-year-old female with a history of hypertension is brought in by EMS for a 30 to 60-minute history of near syncope. She states she is feeling lightheaded but had no associated falls. She denies any headache or vision changes. No nausea or vomiting. She denies any chest pain or shortness of breath. Has no abdominal pain, nausea, vomiting. She has no lower leg edema. She states she is followed by Dr. Baker with cardiology. She states she has no chronic disease other than hypertension but often gets cardiac clearance from him as needed. She has no other acute complaints or concerns. Related Data Home Medications ?Medication ?Instructions ?Recorded ?Confirmed duloxetine 60 mg capsule,delayed 60 mg PO QDAY #30 caps 12/24/14 01/01/25 release (Cymbalta) celecoxib 200 mg capsule 200 mg PO QDAY 06/13/24 01/01/25 losartan 100 1 tab PO QDAY 06/13/24 01/01/25 mg-hydrochlorothiazide 12.5 mg tablet sertraline 50 mg tablet 50 mg PO QDAY 06/13/24 01/01/25 acetaminophen 500 mg tablet 500 mg PO Q6H PRN 07/08/24 01/01/25 (Tylenol Extra Strength) amlodipine 2.5 mg tablet 2.5 mg PO QDAY 07/08/24 01/01/25 cholecalciferol (vitamin D3) 10 10 mcg PO QDAY 07/08/24 01/01/25 mcg (400 unit) capsule ibuprofen 200 mg capsule (Advil 200 mg PO Q6H PRN 07/08/24 01/01/25 Liqui-Gel) Previous Rx's ?Medication ?Instructions ?Recorded hydrocortisone acetate 25 mg 25 mg MI QDAY #12 ea 09/16/24 rectal suppository (Anusol-HC) Allergies Allergy/AdvReac Type Severity Reaction Status Date / Time No Known Allergies Allergy Verified 01/01/25 14:46 Review of Systems Review of Systems Systems Reviewed: All systems reviewed, normal except as documented ED Exam General Limitations: Present no limitations General appearance: Present alert and in no apparent distress Head Head exam: Present atraumatic Eye Eye exam: Present normal appearance, PERRL and EOMI ENT ENT exam: Present normal exam, normal oropharynx and mucous membranes moist Neck Neck exam: Present normal inspection, full ROM and trachea midline Chest Chest inspection: Present normal inspection and symmetric chest wall rise Respiratory Respiratory exam: Present normal lung sounds bilaterally Cardiovascular Cardiovascular exam: Present regular rate, systolic murmur and other (Systolic murmur heard best at the mitral region.) Abdominal Exam Abdominal exam: Present soft and normal bowel sounds Extremities Exam Extremities exam: Present normal inspection and full ROM Back Exam Back exam: Present normal inspection and full ROM Neurological Exam Neurological exam: Present alert and oriented X3 Psychiatric Psychiatric exam: Present normal affect and normal mood Skin Skin exam: Present warm, dry, intact and normal color Course Quality Measures none Orders Category Date Time Status EKG (ED ONLY) *Do not use* NOW Care 04/13/25 15:02 Completed EKG (ED Only) Stat Exams 04/13/25 15:02 Draft XR chest 1V Stat Exams 04/13/25 15:02 Completed BNP [B-Type Natriuretic Peptide] Stat Lab 04/13/25 15:17 Completed CBC Stat Lab 04/13/25 15:17 Completed CMP [Comprehensive Metabolic Panel] Stat Lab 04/13/25 15:17 Completed Lipase Stat Lab 04/13/25 15:17 Completed Mag [Magnesium] Stat Lab 04/13/25 15:17 Completed Troponin I Stat Lab 04/13/25 15:17 Completed Troponin I Stat Lab 04/13/25 18:15 Completed UA, C/S IF [Urinalysis, C/S if Indicated] Stat Lab 04/13/25 15:45 Completed Vital Signs Vital signs: Vital Signs Temperature 97.6 F 04/13/25 14:45 Pulse Rate 68 04/13/25 14:45 Respiratory Rate 18 04/13/25 14:45 Blood Pressure 180/86 H 04/13/25 14:45 Pulse Oximetry (%) 95 04/13/25 14:45 Oxygen Delivery Method Room Air 04/13/25 14:45 Syncope MDM Narrative MDM Narrative:: 84-year-old female with a history of hypertension is brought in by EMS for a 30 to 60-minute history of near syncope. She states she is feeling lightheaded but had no associated falls. She denies any headache or vision changes. No nausea or vomiting. She denies any chest pain or shortness of breath. Has no abdominal pain, nausea, vomiting. She has no lower leg edema. She states she is followed by Dr. Baker with cardiology. She states she has no chronic disease other than hypertension but often gets cardiac clearance from him as needed. She has no other acute complaints or concerns. On exam, patient is nontoxic-appearing in no visible signs distress. Vital signs are stable. Workup here is unremarkable. Her CBC reveals no leukocytosis or anemia. CMP reveals no metabolic derangement. Serial troponins were obtained were also unremarkable. Urinalysis was obtained and was unremarkable. Call was placed to the patient's protection specialist and I spoke with . We discussed the patient's presentation and workup. Patient may be discharged to the emergency room. She may follow-up with her protection specialist tomorrow or the following day for recheck. Consider outpatient echo. Return at anytime for any worsening or emergent changes. Patient data External records reviewed:: None Clinical information provided by:: patient Social determinants that could affect healthcare access:: none Patient has the following chronic illnesses:: Hypertension, depression How is presenting disease/condition affected by chronic disease/condition?: uneffected by Evaluation data The following diagnostics were reviewed and interpreted by me:: lab results (CBC is unremarkable. CMP is unremarkable. Urinalysis shows 5 erythrocytes, serial troponins are negative.), radiology exam(s) (Clear expanded lungs without a mass of the trachea) and EKG tracing(s) (Normal sinus rhythm at [address] changes. Significant artifact is present.) Lab and/or radiology exams considered but not ordered:: n/a Interpretation Summary: Workup was unremarkable for acute cardial pulmonary emergency Medications / Prescriptions Medications or Prescriptions considered but not ordered:: n/a Medication administrations:: n/a Consultations Consultation(s) initiated? (list below): Yes Diagnosis Syncope Differential Diagnosis: syncope due to orthostatic hypotension, complete atrioventricular block and dehydration Most likely diagnosis given after review of the tests above:: near syncope Admission Indicated Admission indicated?: not indicated Admission Request Was there a request for admission?: No Disposition Plan Disposition Plan: Discharge Discharge Attestation Discharge Attestation: The patient and all family members were given an opportunity to ask questions and understood the discharge instructions. Discharge instructions specifically effects, indications for sooner follow up or return to the emergency department, and the expected course of current diagnosis. Patient condition: Stable Discharge Plan Plan Patient Disposition: HOME (Self Care) Patient condition on transfer: Stable Prescriptions/Referrals Prescriptions/Med Rec: No Action celecoxib 200 mg capsule 200 mg PO QDAY losartan-hydrochlorothiazide 100-12.5 mg tablet 1 tab PO QDAY sertraline 50 mg tablet 50 mg PO QDAY acetaminophen [Tylenol Extra Strength] 500 mg tablet 500 mg PO Q6H PRN cholecalciferol (vitamin D3) 10 mcg (400 unit) capsule 10 mcg PO QDAY ibuprofen [Advil Liqui-Gel] 200 mg capsule 200 mg PO Q6H PRN amlodipine 2.5 mg tablet 2.5 mg PO QDAY duloxetine [Cymbalta] 60 MG capsule,delayed release(DR/EC) 60 mg PO QDAY Qty: 30 hydrocortisone acetate [Anusol-HC] 25 mg suppository 25 mg MI QDAY Qty: 12 0RF Referrals: Bladimir Colon MD [Primary Care Provider] - In 1 week Pete Baker MD [Physician] - In 1 week Problem List Clinical Impression: Chest pain Patient/Caregiver Discharge Instructions Education Materials: ED Chest Pain, Uncertain Cause Additional Instructions: - Use Tylenol and ibuprofen for comfort. - Your protection specialist has been contacted and expecting to hear from you. Please contact your protection specialist tomorrow morning to schedule close follow-up appointment. - Please return at anytime for worsening or emergent changes. Print Language: Mohawk Stand Alone Forms: Jeanette Award Info., Patient Portal Info Letter
[2025-04-13 15:45] LABS: Basophils # (Auto) 0.1 Thou/mm3 (0.0-0.2); Basophils % (Auto) 1 % (0-2.5); Eosinophils # (Auto) 0.0 Thou/mm3 (0.0-0.5); Eosinophils % (Auto) 1 % (0-10); Hematocrit 40.5 % (36.0-46.0); Hemoglobin 14.1 g/dL (12.0-16.0); Immature Granulocytes Auto 0.01 Thou/mm3 (0.00-0.00); Lymphocytes # (Auto) 1.3 Thou/mm3 (1.0-4.8); Lymphocytes % (Auto) 21 % (10-50); Mean Corpuscular HGB Conc 34.8 g/dl (31.0-37.0); Mean Corpuscular Hemoglobin 31.1 pg (25.0-35.0); Mean Corpuscular Volume 89 fL (80-100); Monocytes # (Auto) 0.5 Thou/mm3 (0.0-0.8); Monocytes % (Auto) 7 % (0-12); Neutrophils # (Auto) 4.5 Thou/mm3 (1.8-7.7); Neutrophils % (Auto) 71 % (37-80); Nucleated Red Blood Cell # 0.00 Thou/mm3 (0.00-0.00); Nucleated Red Blood Cell % 0 /100 WBC (0); Platelet Count 359 Thou/mm3 (140-440); RDW Standard Deviation 43.1 fL (36.4-46.3); Red Blood Count 4.54 Miln/mm3 (4.00-5.20); White Blood Count 6.4 Thou/mm3 (3.6-11.0)
[2025-04-13 15:54] LABS: Collection Type, Urine Voided
[2025-04-13 16:04] LABS: Alanine Aminotransferase 12 U/L (10-49); Albumin, Serum 4.8 gm/dL (3.4-4.8); Albumin/Globulin Ratio 2.1 (1.2-2.2); Alkaline Phosphatase 97 U/L (46-116); Anion Gap 10 (7-16); Aspartate Amino Transferase 27 U/L (0-34); BUN/Creatinine Ratio 20 Ratio (12-20); Bilirubin,Total 0.6 mg/dL (0.3-1.2); Blood Urea Nitrogen 18 mg/dL (9-23); Calcium 10.2 mg/dL (8.3-10.6); Calcium (Corrected) 10.2 mg/dL (8.5-10.1); Carbon Dioxide 23.0 mMol/L (20.0-31.0); Chloride 108 mMol/L (98-107); Creatinine (Component) 0.9 mg/dL (0.6-1.3); Globulin 2.3 gm/dL (2.3-3.5); Glucose 105 mg/dL (74-106); Lipase 55 U/L (12-53); Magnesium 2.0 mg/dL (1.6-2.6); Osmolality,Calculated 283 (275-295); Potassium 3.6 mMol/L (3.4-5.1); Sodium 141 mMol/L (136-145); Total Protein 7.1 gm/dL (5.7-8.2); Troponin I < 0.020 ng/mL (0.0-0.045); eGFR > 60 See Note
[2025-04-13 16:08] LABS: Bilirubin,Urine Negative (Negative); Blood,Urine Negative (Negative); Clarity,Urine Clear (Clear/Hazy); Color,Urine Colorless (Lt Yel-Yel); Culture Indicated,Urine Not Indicated; Glucose, Urine Negative (Negative); Ketones,Urine Negative (Negative); Leukocyte Esterase,Urine Negative (Negative); Nitrite,Urine Negative (Negative); PH,Urine 7.0 (5.0-7.0); Protein,Urine Trace (Neg - Trace); RBC,Urine 5 /hpf (0-3); Specific Gravity,Urine 1.011 (1.001-1.035); Squamous Epithelial Cell,Urine < 1 /hpf (0-5); Urobilinogen,Urine Negative mg/dL (0.0-1.0); WBC,Urine 1 /hpf (0-5)
[2025-04-13 16:10] LABS: B-Type Natriuretic Peptide 93 pg/mL (0-100)
[2025-04-13 16:17] VITALS: BMI 19.9
[2025-04-13 18:47] VITALS: BP 178/78; PULSE 64; RESP 18; TEMP 36.6; O2SAT 98
[2025-04-13 19:20] LABS: Troponin I < 0.020 ng/mL (0.0-0.045)
[2025-04-13 21:19] VITALS: BP 158/83; PULSE 72; RESP 18; TEMP 36.3; O2SAT 96
== END 2025-04-13 21:30 | disposition home or self-care (01) ==
PROVIDERS: Physician Assistant Medical; Emergency Provider Emergency Medicine; PCP Internal Medicine
DX: R07.9 Chest pain, unspecified (principal); I10 Essential (primary) hypertension
CPT/HCPCS: 36415; 71045; 80053; 81001; 83690; 83735; 83880; 84484; 85025; 93005; 99283

== ENCOUNTER → 2025-04-28 | Outpatient (CLI) | payer MEDICARE, BC, MEDICAID, SELFPAY ==
--- NOTE | 2025-04-28 15:15 | XR_ITS ---
Exam: MRI knee without contrast, left Date and time of exam: July 28, 2025, 1826 hours INDICATIONS: Left knee pain 10 years joint locking stiffness Technique: Multiple axial, coronal, and sagittal sections on the knee have been obtained. T2-Weighted sagittal, fat-suppressed images, TR 3,500, TE 62, T2 weighted coronal fat-saturated images, TR 3,500, TE 62 Proton density sagittal sections, TR 1800, TE 31. 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
== END | disposition home or self-care (01) ==
PROVIDERS: PCP Internal Medicine; Referring Provider Internal Medicine; Visit Provider Internal Medicine
DX: M25.562 Pain in left knee (principal)
CPT/HCPCS: 73721